=== PATIENT | male | born 1985 | race Caucasian/White ===

== ENCOUNTER 2017-05-30 15:15 | Emergency (ER) | payer OTHER ==
[~2017-05-30] VITALS: Ht 170.2 cm; Wt 65.8 kg
[2017-05-30 15:15] VITALS: BP 113/57
[2017-05-30] MEDS ORDERED: PRED20TA PO (15:30)
[2017-05-30] MEDS ORDERED: IBUP-1060 PO (15:30)
[2017-05-30] MEDS ORDERED: HYDR-971 PO (15:30)
--- NOTE | 2017-05-30 15:31 | PHYS DOC ---
Adult General Chief Complaint Chief Complaint: FOOT INJURY PAIN HPI HPI Patient is a 32 year old male with a history of gout presents the ED complaining of right foot and toe pain 3 days. States the pain is sharp and burning. States same pain as previous gout exacerbations. Rates the pain as 9/ 10. Pain with touch. Denies injury, fever, trauma, calf pain, swelling, chest pain, shortness of breath or nausea/vomiting. Review of Systems Review of Systems Constitutional: Denies fever or chills [] Eyes: Denies change in visual acuity, redness, or eye pain [] HENT: Denies nasal congestion or sore throat [] Respiratory: Denies cough or shortness of breath [] Cardiovascular: No additional information not addressed in HPI [] GI: Denies abdominal pain, nausea, vomiting, bloody stools or diarrhea [] : Denies dysuria or hematuria [] Musculoskeletal: Complains of foot pain. Denies back pain. [] Integument: Denies rash or skin lesions [] Neurologic: Denies headache, focal weakness or sensory changes [] Endocrine: Denies polyuria or polydipsia [] Physical Exam Physical Exam Constitutional: Well developed, well nourished, no acute distress, non-toxic appearance. [] HENT: Normocephalic, atraumatic, bilateral external ears normal, oropharynx moist, no oral exudates, nose normal. [] Eyes: PERRLA, EOMI, conjunctiva normal, no discharge. [] Neck: Normal range of motion, no tenderness, supple, no stridor. [] Cardiovascular:Heart rate regular rhythm, no murmur [] Lungs & Thorax: Bilateral breath sounds clear to auscultation [] Abdomen: Bowel sounds normal, soft, no tenderness, no masses, no pulsatile masses. [] Skin: Warm, dry, no erythema, no rash. [] Back: No tenderness, no CVA tenderness. [] Extremities: MILD TENDERNESS AND ERYTHEMA TO RIGHT GREAT TOE. NV INTACT. no cyanosis, no clubbing, ROM intact, no edema. [] Neurologic: Alert and oriented X 3, normal motor function, normal sensory function, no focal deficits noted. [] Psychologic: Affect normal, judgement normal, mood normal. [] EKG EKG [] Radiology/Procedures Radiology/Procedures [] Course & Med Decision Making Course & Med Decision Making Pertinent Labs and Imaging studies reviewed. (See chart for details) []No injury or trauma. No x-ray warranted. Patient states he usually is treated with prednisone and analgesics and it improves in a few days. Patient states he has been on vacation and been drinking beer and eating things not in his normal diet. We'll treat with prednisone and analgesics outpatient. Discussed follow- up with PCP. Discussed reasons to return to the ED. Patient understands and agrees with plan for Dragon Disclaimer Dragon Disclaimer This electronic medical record was generated, in whole or in part, using a voice recognition dictation system. Departure Departure Impression: Primary Impression: Exacerbation of gout Disposition: HOME, SELF-CARE Condition: STABLE Patient Instructions: Gout Scripts Hydrocodone/Apap 5-325 (NORCO 5-325 TABLET) 1 Each Tablet 1 TAB PO TID, #6 TAB Prov: HAVEN VALDEZ 05/30/17 Ibuprofen (IBUPROFEN) 800 Mg Tablet 800 MG PO PRN Q6HRS Y for INFLAMMATION, #20 TAB Prov: HAVEN VALDEZ 05/30/17 Prednisone (PREDNISONE) 20 Mg Tablet 2 TAB PO DAILY, #10 TAB Prov: HAVEN VALDEZ 05/30/17 HAVEN VALDEZ May 30, 2017 15:31
== END 2017-05-30 15:35 | disposition home or self-care (01) ==
LOC: ER 15:15
DX: M10.9 Gout, unspecified (principal)
CPT/HCPCS: 99283